=== PATIENT | female | born 1975 | race Caucasian/White ===

== ENCOUNTER → 2016-06-03 | Outpatient (CLI) | payer BC ==
--- NOTE | 2016-06-03 14:47 | RAD ---
EXAM: Maxillofacial bone CT without contrast. HISTORY: Sinusitis. TECHNIQUE: Computed tomographic images of the maxillofacial bones were obtained without contrast. One or more of the following individualized dose reduction techniques were utilized for this examination: 1. Automated exposure control. 2. Adjustment of the mA and/or kV according to patient size. 3. Use of iterative reconstruction technique. COMPARISON: None. FINDINGS: There is a tiny right maxillary sinus mucous retention cyst. There is no sinus opacification or air-fluid level. The ostiomeatal units are patent. There is mild rightward nasal septal deviation. 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 The orbits, mastoid air cells and visualized calvarium are unremarkable. There is mild cerebral volume loss. IMPRESSION: 1. No evidence of acute or chronic sinusitis. 2. Mild nasal septal deviation and left shay bullosa.
== END | disposition home or self-care (01) ==
LOC: CT 14:02
PROVIDERS: ATTEND Nurse Practitioner Adult Health
DX: J32.9 Chronic sinusitis, unspecified (principal); J34.2 Deviated nasal septum
CPT/HCPCS: 70486